=== PATIENT | female | born 1960 | race Caucasian/White ===

== ENCOUNTER → 2016-11-24 | Outpatient (CLI) | payer OTHER ==
[~2016-11-24] MED LIST: ACETAMINOPHEN650 M1 PO; ALPRAZOLAM PO; BACLOFEN10 MG PO; CYMBALTA PO; CYMBALTA30 MG PO; DYAZIDE 37.5/251 CAP PO; EFFEXOR XR PO; HYDROCHLOROTHIA25 MG PO; LEVOTHROID100 MC1 PO; LISINOPRIL20 MG PO; LORTAB 10/500 T1 TAB PO; MAXALT MLT10 MG/TAB PO; METHADONE PO; MIRALAX17 GM PO; NORCO 10/325 TA1 TAB PO; NORVASC PO; OXYCODONE HCL20 M1 PO; OXYCONTIN PO; PANTOPRAZOLE SO40 MG PO; PAROXETINE HCL20 M1 PO; PERCOCET10 PO; PHENERGAN PO; POTASSIUM40 MEQ/15 PO; PROMETHAZINE HC25 MG PO; PROZAC10 MG PO; RANITIDINE HCL150 M1 PO; SOD BICARBONATE PO; SOMA PO; TRAZODONE HCL100 MG PO; TREXIMET 85-5001 TAB PO; XANAX0.5 MG PO; ZANTAC PO
--- NOTE | ~2016-11-24 | MY11 ---
[facility] A Service of [facility] RADIOLOGY TEXT RESULTS PATIENT: BIJAN PETE LOCATION: [facility] : 56 UNIT #: [id number] AGE: [address]: Darcie Del Valle MD SEX: F ORDER DR: [id number] [facility] [address] [place], [place] [address] [id number] O MR#: [id number] Acc #: [id number] NAME: BIJAN PETE : 1960 SEX: F STUDY DATE/TIME: 11/24/2016 12:57 UNIT: [facility] ROOM: STUDY DESCRIPTION: MY Mammogram Screening Dig Gerson Attending Physician: Darcie Del Valle M.D. Referring Physician: Darcie Del Valle M.D. Ordering Physician: Darcie Del Valle M.D. Primary Care Physician: Darcie Del Valle M.D. MEDICAL IMAGING REPORT This report is preliminary unless electronic signature is present EXAM Screening mammogram, 11/24/2016. HISTORY 56-year-old with no personal or family history of breast cancer. No current complaints. FINDINGS Routine digital screening views of both breasts were obtained. Study is reviewed with an FDA-approved CAD device. Comparison made with outside prior mammograms from 10/31/2011 and 08/15/2010. Breast parenchyma shows scattered fibroglandular densities. No masses or suspicious microcalcifications are seen. Benign calcifications are present in both breasts. IMPRESSION Benign mammogram. Routine screening in 1 year is recommended. Patients over the age of 40 are entered into a reminder system with target due date for the next mammogram. A result letter will also be sent to the patient. BIRADS: 2 Benign finding. Dictated by... Robert Alston Jr., M.D. THIS IS AN ELECTRONICALLY VERIFIED REPORT [facility] A Service of [facility] RADIOLOGY TEXT RESULTS PATIENT: BIJAN PETE [facility]: [id number] : 56 UNIT #: [id number] AGE: [address]: Darcie Del Valle MD SEX: F ORDER DR: Robert Alston Jr. MBipin at 11/25/2016 4:48 PM ELMER/divina TD: 11/25/2016 11:50 JOB #: [id number] MEDICAL IMAGING REPORT Page 1 of 1 COPY
== END | disposition home or self-care (01) ==
LOC: CWCC 12:22
DX: Z12.31 Encounter for screening mammogram for malignant neoplasm of breast (principal)
CPT/HCPCS: G0202

== ENCOUNTER 2016-12-16 13:01 | Emergency (ER) | payer OTHER ==
--- NOTE | ~2016-12-16 | US85 ---
[facility] A Service of [facility] RADIOLOGY TEXT RESULTS PATIENT: BIJAN PETE LOCATION: [facility] : 56 UNIT #: [id number] AGE: [address]: Genaro Perez MD SEX: F ORDER DR: [id number] [facility] [address] [place], [place] [address] [id number] MR#: [id number] Acc #: [id number] NAME: BIJAN PETE : 1960 SEX: F STUDY DATE/TIME: 12/16/2016 16:37 UNIT: [facility] ROOM: STUDY DESCRIPTION: LE Veins Unilat or Ltd Stdy Attending Physician: Genaro Perez M.D. Referring Physician: Generic Doctor Not In System Ordering Physician: Genaro Perez M.D. Primary Care Physician: Darcie Del Valle M.D. MEDICAL IMAGING REPORT This report is preliminary unless electronic signature is present EXAM Left lower extremity venous ultrasound HISTORY Left lower extremity pain and swelling thigh and ankle for 3 days. No history of DVT or SVT. No injury. FINDINGS Real time ultrasonography of the left lobe and the venous structures performed. White-scale color Doppler, Doppler pulse-wave interrogation utilized. The left common femoral vein, femoral vein, profunda femoris vein, popliteal vein, anterior tibial, posterior tibial and peroneal veins show normal compressibility where anatomically possible and normal color Doppler interrogation demonstrating [id number] flow. The great saphenous vein is patent throughout its course. There is no evidence of deep or superficial venous thrombosis. Note made of some varicose veins at the level of the ankle. These appear patent. In the popliteal fossa, there is a 3.85 cm x 1.52 cm x 1.03 cm hypoechoic collection, appearance and location of which are most consistent with synovial/Lang's cyst. IMPRESSION 1. Left lower extremity venous ultrasound shows no deep or superficial venous thrombosis at time of this location. 2. Note made of a varicose veins at level the ankle. 3. Hypoechoic collection in the popliteal fossa measuring 3.8 cm x 1.5 cm x 1 cm. Appearance in location most consistent with synovial/Lang's cyst. Clinical followup recommended. If it would assist in management, this structure could be further evaluated with CT or MRI. [facility] A Service of [facility] RADIOLOGY TEXT RESULTS PATIENT: BIJAN PETE LOCATION: [facility] : 56 UNIT #: [id number] AGE: [address]: Genaro Perez MD SEX: F ORDER DR: Dictated by... Moses Mann M.D. THIS IS AN ELECTRONICALLY VERIFIED REPORT Moses Mann M.D. at 12/17/2016 5:58 PM Mik TD: 12/16/2016 23:36 JOB #: [id number] MEDICAL IMAGING REPORT Page 1 of 1 COPY
== END 2016-12-16 17:20 | disposition home or self-care (01) ==
LOC: CED 13:01
DX: I83.812 Varicose veins of left lower extremity with pain (principal); M71.22 Synovial cyst of popliteal space [Baker], left knee; I12.9 Hypertensive chronic kidney disease with stage 1 through stage 4 chronic kidney disease, or unspecified chronic kidney disease; N18.9 Chronic kidney disease, unspecified; F17.200 Nicotine dependence, unspecified, uncomplicated; Z88.0 Allergy status to penicillin; Z88.7 Allergy status to serum and vaccine
CPT/HCPCS: 93971; 99284